=== PATIENT | female | born 1995 | race Caucasian/White ===

== ENCOUNTER 2022-10-19 09:24 | Day surgery (SDC) | payer OTHER ==
[2022-10-14 13:22] VITALS: BMI 27.2
[2022-10-19] MEDS ORDERED: fentaNYL PF 100 MCG/2 ML SYRINGE ONE (09:32)
[2022-10-19] MEDS ORDERED: Lidocaine 1% (PF) 30 ML VIAL ONE (10:52)
[2022-10-19] MEDS ORDERED: EPINEPHrine 1 MG/ML AMP ONE (10:52)
[2022-10-19] MEDS ORDERED: Acetaminophen 500 MG TAB ONE (11:09)
[2022-10-19] MEDS ORDERED: Midazolam HCl 2 mg/2 ml Vial ONE (11:09)
[2022-10-19] MEDS ORDERED: Dexamethasone 20 MG/5 ML VIAL ONE (12:02)
[2022-10-19] MEDS ORDERED: Lidocaine 1% PF 5 ML VIAL ONE (12:02)
[2022-10-19] MEDS ORDERED: Ondansetron PF 4 MG/2 ML Vial ONE (12:02)
[2022-10-19] MEDS ORDERED: PROPOFOL 200 MG/20 ML VIAL ONE (12:02)
[2022-10-19] MEDS ORDERED: Rocuronium Bromide 10 MG/ML (10ML VIAL) ONE (12:02)
[2022-10-19] MEDS ORDERED: oxyCODONE 5 MG TAB ONE (13:20)
== END 2022-10-19 14:16 | disposition home or self-care (01) ==
LOC: SDC 09:24
PROVIDERS: ATTEND Otolaryngology Plastic Surgery within the Head & Neck
PROC: 0WB60ZZ Excision of Neck, Open Approach (ICD-10-PCS; principal; 2022-10-19)
DX: Q89.2 Congenital malformations of other endocrine glands (principal); R13.11 Dysphagia, oral phase
CPT/HCPCS: 88305; J0171; J1100; J2001; J2250; J2405; J2704